=== PATIENT | female | born 1990 | race Caucasian/White ===

== ENCOUNTER 2017-08-31 19:06 | Emergency (ER) | payer OTHER ==
[~2017-08-31] VITALS: Ht 162.6 cm; Wt 103.2 kg
[~2017-08-31 19:06] MED LIST: BUSP5TAB3 PO; DEPA250T PO; DEPA250T2 PO; HYDR-3533 PO; POLY119S PO; SERT50 PO; ZOFR4TAB3 SL
[2017-08-31 19:14] VITALS: BP 138/68; PULSE 71; RESP 18; TEMP 99; O2SAT 100
[2017-08-31] MEDS ORDERED: SODIUM CHLOR 0.9% 1000 ML INJ 1,000 ML IV SCH (19:47)
[2017-08-31 19:54] VITALS: O2SAT 97
--- NOTE | 2017-08-31 19:56 | PD ---
HPI Chief Complaint: Abdominal Pain Time Seen by Provider: 19:22 Travel History International Travel<30 days: No Contact w/Intl Traveler<30days: No Traveled to known affect area: No History of Present Illness HPI The patient is a 27-year-old female who presents to the emergency department pain of 3 days duration. The patient has a history of intermittent pain of the last several months, however, the pain became constant 3 days ago. The patient had an outpatient workup by her primary physician, Dr. Han, who ordered an outpatient ultrasound. The patient states she does not know the results of the ultrasound, however, think she is going to be referred to a gynecologic surgeon, possibly for a left ovarian cyst. The patient does have a history of left ovarian cyst in the past and underwent surgery to remove the cyst. Last menstrual cycle was 2 weeks ago, she is currently on control, denies . She denies any current vaginal bleeding, discharge, dysuria, frequency, or urgency. She denies any associated nausea, vomiting, diarrhea, or change in bowel habits. She does have a history of hernia repair in the left flank, left ovarian cyst removal, and cholecystectomy. She denies any associated fever, chills, or sweats. PFSH Past Medical History Anxiety: Yes Depression: Yes Cancer: No Diabetes: No Diminished Hearing: No Glaucoma: No Hepatitis: No Hiatal Hernia: No Hypertension: No Inguinal Hernia: Yes (left) Immunizations Current: No Thyroid Disease: Yes ?: Not LMP: 1.5 weeks ago : 0 Ovarian Cysts: Yes Past Surgical History Abdominal Surgery: Yes (CHOLECYSTECTOMY) Cardiac Surgery: No Cholecystectomy: Yes Ear Surgery: No Eye Surgery: No Genitourinary Surgery: No Gynecologic Surgery: No Oral Surgery: Yes (WISDOM TEETH) Pacemaker: No Thoracic Surgery: No Other Surgery: Yes Social History Alcohol Use: No (denies) Tobacco Use: No (<1/4 ppd) Substance Use: No Allergies-Medications (Allergen,Severity, Reaction): Coded Allergies: tramadol (Verified Allergy, Severe, MIGRAINE N/V, 08/31/17) Reported Meds & Prescriptions Reported Meds & Active Scripts Active Reported Tri-Sprintec (Norgestimate-Ethinyl Estradiol) 0.18/0.215/0.25 Mg-35 Mcg Tab 1 Tab PO HS Depakote ER (Divalproex Sodium) 500 Mg Mary 1,000 Mg PO DAILY Depakote ER (Divalproex Sodium) 500 Mg Mary 500 Mg PO HS Buspirone (Buspirone HCl) 30 Mg Tab 30 Mg PO BID Review of Systems Except as stated in HPI: all other systems reviewed are Neg General / Constitutional: No: Fever, Chills Cardiovascular: No: Chest Pain or Discomfort Respiratory: No: Shortness of Breath Gastrointestinal: Positive: Abdominal Pain, No: Nausea, Vomiting Genitourinary: Positive: Pelvic Pain, Flank Pain, No: Urgency, Frequency, Dysuria, Hematuria, Discharge, Vaginal Bleeding Skin: No Rash Physical Exam Narrative GENERAL: Awake, alert, pleasant 27-year-old female who appears her stated age and is in no acute respiratory distress. SKIN: Focused skin assessment warm/dry. HEAD: Atraumatic. Normocephalic. EYES: Pupils equal and round. No scleral icterus. No injection or drainage. ENT: No nasal bleeding or discharge. Mucous membranes pink and moist. NECK: Trachea midline. No JVD. CARDIOVASCULAR: Regular rate and rhythm. No murmur appreciated. RESPIRATORY: No accessory muscle use. Clear to auscultation. Breath sounds equal bilaterally. GASTROINTESTINAL: Abdomen soft, obese, tender to palpation left lower quadrant. No guarding rigidity. Back: No CVA tenderness. MUSCULOSKELETAL: No obvious deformities. No clubbing. No cyanosis. No edema. NEUROLOGICAL: Awake and alert. No obvious cranial nerve deficits. Motor grossly within normal limits. Normal speech. PSYCHIATRIC: Appropriate mood and affect; insight and judgment normal. Data Data Last Documented VS Vital Signs Date Time Temp Pulse Resp B/P (MAP) Pulse Ox O2 Delivery O2 Flow Rate FiO2 08/31/17 20:22 69 16 117/69 (85) 96 Room Air 08/31/17 19:14 99.0 Orders Orders Complete Blood Count With Diff (08/31/17 19:47) Comprehensive Metabolic Panel (08/31/17 19:47) Lipase (08/31/17 19:47) Lactic Acid (08/31/17 19:47) Urinalysis - C+S If Indicated (08/31/17 19:47) Iv Access Insert/Monitor (08/31/17 19:47) Ecg Monitoring (08/31/17 19:47) Oximetry (08/31/17 19:47) Morphine Inj (Morphine Inj) (08/31/17 20:00) Ondansetron Inj (Zofran Inj) (08/31/17 20:00) Sodium Chlor 0.9% 1000 Ml Inj (Ns 1000 M (08/31/17 19:47) Sodium Chloride 0.9% Flush (Ns Flush) (08/31/17 20:00) Ketorolac Inj (Toradol Inj) (08/31/17 20:00) Ed Urine Pregnancytest Poc (08/31/17 19:47) Us Pelvis Comp W Dop Transvag (08/31/17 ) Morphine Inj (Morphine Inj) (08/31/17 21:15) Labs Laboratory Tests Test 08/31/17 19:45 08/31/17 19:50 White Blood Count 8.6 TH/MM3 Red Blood Count 4.59 MIL/MM3 Hemoglobin 12.9 GM/DL Hematocrit 39.9 % Mean Corpuscular Volume 86.9 FL Mean Corpuscular Hemoglobin 28.0 PG Mean Corpuscular Hemoglobin Concent 32.3 % Red Cell Distribution Width 12.2 % Platelet Count 273 TH/MM3 Mean Platelet Volume 8.0 FL Neutrophils (%) (Auto) 75.5 % Lymphocytes (%) (Auto) 18.2 % Monocytes (%) (Auto) 4.6 % Eosinophils (%) (Auto) 1.1 % Basophils (%) (Auto) 0.6 % Neutrophils # (Auto) 6.4 TH/MM3 Lymphocytes # (Auto) 1.6 TH/MM3 Monocytes # (Auto) 0.4 TH/MM3 Eosinophils # (Auto) 0.1 TH/MM3 Basophils # (Auto) 0.1 TH/MM3 CBC Comment DIFF FINAL Differential Comment Urine Color YELLOW Urine Turbidity CLEAR Urine pH 6.0 Urine Specific [place] 1.015 Urine Protein NEG mg/dL Urine Glucose (UA) NEG mg/dL Urine Ketones NEG mg/dL Urine Occult Blood NEG Urine Nitrite NEG Urine Bilirubin NEG Urine Urobilinogen 0.2 MG/DL Urine Leukocyte Esterase NEG Urine RBC 0-2 /hpf Urine WBC 3-5 /hpf Urine Squamous Epithelial Cells 6-8 /hpf Urine Bacteria NONE /hpf Microscopic Urinalysis Comment CULT NOT INDICATED Blood Urea Nitrogen 6 MG/DL Creatinine 0.74 MG/DL Random Glucose 104 MG/DL Total Protein 8.5 GM/DL Albumin 3.3 GM/DL Calcium Level 9.3 MG/DL Alkaline Phosphatase 124 U/L Aspartate Amino Transf (AST/SGOT) 20 U/L Alanine Aminotransferase (ALT/SGPT) 39 U/L Total Bilirubin 0.3 MG/DL Sodium Level 139 MEQ/L Potassium Level 3.4 MEQ/L Chloride Level 104 MEQ/L Carbon Dioxide Level 28.0 MEQ/L Anion Gap 7 MEQ/L Estimat Glomerular Filtration Rate 93 ML/MIN Lipase 98 U/L Lactic Acid Level 1.6 mmol/L MDM Medical Decision Making Medical Screen Exam Complete: Yes Emergency Medical Condition: Yes Medical Record Reviewed: Yes Interpretation(s) Laboratory Tests Test 08/31/17 19:45 08/31/17 19:50 White Blood Count 8.6 TH/MM3 Red Blood Count 4.59 MIL/MM3 Hemoglobin 12.9 GM/DL Hematocrit 39.9 % Mean Corpuscular Volume 86.9 FL Mean Corpuscular Hemoglobin 28.0 PG Mean Corpuscular Hemoglobin Concent 32.3 % Red Cell Distribution Width 12.2 % Platelet Count 273 TH/MM3 Mean Platelet Volume 8.0 FL Neutrophils (%) (Auto) 75.5 % Lymphocytes (%) (Auto) 18.2 % Monocytes (%) (Auto) 4.6 % Eosinophils (%) (Auto) 1.1 % Basophils (%) (Auto) 0.6 % Neutrophils # (Auto) 6.4 TH/MM3 Lymphocytes # (Auto) 1.6 TH/MM3 Monocytes # (Auto) 0.4 TH/MM3 Eosinophils # (Auto) 0.1 TH/MM3 Basophils # (Auto) 0.1 TH/MM3 CBC Comment DIFF FINAL Differential Comment Urine Color YELLOW Urine Turbidity CLEAR Urine pH 6.0 Urine Specific [place] 1.015 Urine Protein NEG mg/dL Urine Glucose (UA) NEG mg/dL Urine Ketones NEG mg/dL Urine Occult Blood NEG Urine Nitrite NEG Urine Bilirubin NEG Urine Urobilinogen 0.2 MG/DL Urine Leukocyte Esterase NEG Urine RBC 0-2 /hpf Urine WBC 3-5 /hpf Urine Squamous Epithelial Cells 6-8 /hpf Urine Bacteria NONE /hpf Microscopic Urinalysis Comment CULT NOT INDICATED Blood Urea Nitrogen 6 MG/DL Creatinine 0.74 MG/DL Random Glucose 104 MG/DL Total Protein 8.5 GM/DL Albumin 3.3 GM/DL Calcium Level 9.3 MG/DL Alkaline Phosphatase 124 U/L Aspartate Amino Transf (AST/SGOT) 20 U/L Alanine Aminotransferase (ALT/SGPT) 39 U/L Total Bilirubin 0.3 MG/DL Sodium Level 139 MEQ/L Potassium Level 3.4 MEQ/L Chloride Level 104 MEQ/L Carbon Dioxide Level 28.0 MEQ/L Anion Gap 7 MEQ/L Estimat Glomerular Filtration Rate 93 ML/MIN Lipase 98 U/L Lactic Acid Level 1.6 mmol/L Ultrasound of the pelvis complete with Doppler transvaginal reveals symmetrical blood flow to both ovaries using both transvaginal and transabdominal technique. Large cystic mass left ovary. This has increased in size from the comparison study. Follow-up is suggested. Differential Diagnosis Differential diagnosis includes ovarian cyst, ovarian torsion, ovarian infarction, diverticulitis, PID, cervicitis, UTI, nephrolithiasis, hydronephrosis. Narrative Course IV was established, labs are drawn and sent, the patient was placed on cardiac telemetry monitoring and continuous pulse oximetry monitoring. Bedside UA test was obtained, was negative. UA was sent to lab. The patient was administered morphine, Toradol, Zofran, and IV fluids. Ultrasound of the pelvis with Doppler was ordered to evaluate for possible torsion versus cyst. Diagnosis Primary Impression: Left ovarian cyst Patient Instructions: General Instructions Additional Instructions: Patient needs to follow-up with a rubber covering machine operator in regards to the large cystic mass on the left ovary. Medications as directed. Please provide the patient a copy of her ultrasound results and lab results at discharge. Return if symptoms worsen or progress. Med/Other Pt SpecificInfo: Prescription(s) given Scripts Hydrocodone-Acetaminophen ([place]) 5 Mg-325 Mg Tab 1 TAB PO Q6H Y for PAIN, #12 TAB 0 Refills Prov: Anmol Palomares MD 08/31/17 Ibuprofen (Ibuprofen) 600 Mg Tab 600 MG PO Q6H Y for Pain/Inflammation, #20 TAB 0 Refills Prov: Anmol Palomares MD 08/31/17 Disposition: 01 DISCHARGE HOME Condition: Stable Anmol Palomares MD Aug 31, 2017 19:56
[2017-08-31] MEDS ORDERED: SODIUM CHLORIDE 0.9% FLUSH 10 ML FLUSH IV FLUSH PRN (20:00)
[2017-08-31] MEDS ORDERED: ONDANSETRON HCL 4 MG/2 ML VIAL IVP ONE (20:00)
[2017-08-31] MEDS ORDERED: MORPHINE SULFATE 4 MG/ML INJ IV PUSH ONE ×2 (20:00→21:15)
[2017-08-31] MEDS ORDERED: KETOROLAC TROMETHAMINE 30 MG/ML (IVP) VIAL IVP ONE (20:00)
[2017-08-31 20:09] LABS: AUTOMATED NEUTROPHIL # 6.4 TH/MM3 (1.8-7.7); BASOPHIL # 0.1 TH/MM3 (0-0.2); BASOPHIL % 0.6 % (0.0-2.0); BILIRUBIN, URINE NEG (NEG); BLOOD, URINE NEG (NEG); EOSINOPHIL # 0.1 TH/MM3 (0-0.4); EOSINOPHIL % 1.1 % (0.0-4.0); GLUCOSE,URINE NEG (NEG); HEMATOCRIT 39.9 % (35.0-46.0); HEMOGLOBIN 12.9 GM/DL (11.6-15.3); KETONE, URINE NEG (NEG); LYMPH % 18.2 % (9.0-44.0); LYMPHOCYTE # 1.6 TH/MM3 (1.0-4.8); MEAN CELL VOLUME 86.9 FL (80.0-100.0); MEAN CORPUSCULAR HGB CONC 32.3 % (32.0-36.0); MONO % 4.6 % (0.0-8.0); MONOCYTE # 0.4 TH/MM3 (0-0.9); NEUT % 75.5 % (16.0-70.0); NITRITE,URINE NEG (NEG); PLATELET COUNT 273 TH/MM3 (150-450); RED BLOOD COUNT 4.59 MIL/MM3 (4.00-5.30); RED CELL DISTRIBUTION WIDTH 12.2 % (11.6-17.2); URINE COLOR YELLOW (YELLW/STRAW); URINE LEUKOCYTE ESTERASE NEG (NEG); WHITE BLOOD COUNT 8.6 TH/MM3 (4.0-11.0)
[2017-08-31 20:12] LABS: RBC, URINE 0-2 /hpf (0-3)
[2017-08-31 20:15] LABS: CHLORIDE 104 MEQ/L (98-107); SODIUM (NA) 139 MEQ/L (136-145)
[2017-08-31 20:18] LABS: CALCIUM 9.3 MG/DL (8.5-10.1)
[2017-08-31 20:19] LABS: ALBUMIN 3.3 GM/DL (3.4-5.0); BLOOD UREA NITROGEN 6 MG/DL (7-18); GLUCOSE,RANDOM 104 MG/DL (74-106)
[2017-08-31 20:22] VITALS: BP 117/69; PULSE 69; RESP 16; O2SAT 96
[2017-08-31 20:22] LABS: ALT (GPT) 39 U/L (10-53); AST (GOT) 20 U/L (15-37); CREATININE 0.74 MG/DL (0.50-1.00); GLOMERULAR FILTRATION RATE 93 ML/MIN (>89)
[2017-08-31 20:23] LABS: TOTAL BILIRUBIN ADULT 0.3 MG/DL (0.2-1.0); TOTAL PROTEIN 8.5 GM/DL (6.4-8.2)
[2017-08-31 20:25] LABS: ALKALINE PHOSPHATASE 124 U/L (45-117)
[2017-08-31] MEDS ORDERED: TRI-TAB PO (20:37)
[2017-08-31] MEDS ORDERED: DEPA500T3 PO ×2 (20:37)
[2017-08-31] MEDS ORDERED: BUSP30TA PO (20:37)
--- NOTE | 2017-08-31 21:18 | RADRPT ---
EXAM DATE/TIME: 08/31/2017 20:31 [facility] COMPARISON: C the smaller mural nodules. T ABDOMEN & PELVIS W CONTRAST, June 20, 2015, 21:08. INDICATIONS : Left pelvic pain for several months, worse in the last three days. MEDICAL HISTORY : Left pelvic pain. SURGICAL HISTORY : Left ovarian cyst removed. Hernia repair. Cholecystectomy. Left legh surgery. Left arm surgery. Left knee surgery. Right hand surgery. ENCOUNTER: Initial ACUITY: 2 months PAIN SCORE: 3/10 LOCATION: Bilateral pelvis MEASUREMENTS: TRANSABDOMINAL: UTERUS: 8.0 x 3.8 x 3.1 cm ENDOMETRIAL STRIPE: 6 mm RIGHT OVARY: 2.8 x 1.4 x 2.1 cm LEFT OVARY: 5.9 x 4.6 x 4.3 cm TRANSVAGINAL: UTERUS: 7.7 x 3.9 x 3.3 cm ENDOMETRIAL STRIPE: 2 mm RIGHT OVARY: 2.8 x 1.8 x 1.7 cm LEFT OVARY: 5.9 x 5.0 x 4.8 cm FINDINGS: UTERUS: The myometrium has homogeneous echotexture without mass. RIGHT OVARY: Ovary contains no mass or significant cystic lesion. LEFT OVARY: 4.8 cm cyst midportion. 1.4 center solid nodule lower portion. MISCELLANEOUS: No free fluid. CONCLUSION: Symmetrical blood flow to both ovaries using both transvaginal and transabdominal technique. Large cystic mass left ovary That has increased in size from the comparison study. Followup is suggested. Eliazar Florez MD FACR on August 31, 2017 at 21:13 Board Certified Radiologist. This report was verified electronically.
[2017-08-31 21:21] VITALS: BP 123/71; PULSE 68; RESP 16; O2SAT 97
[2017-08-31] MEDS ORDERED: IBUP-232 PO (21:21)
[2017-08-31] MEDS ORDERED: NORC5TAB PO (21:21)
[2017-08-31 22:28] VITALS: BP 131/74
== END 2017-08-31 22:30 | disposition home or self-care (01) ==
LOC: PHED 19:06
DX: N83.202 Unspecified ovarian cyst, left side (principal); F41.9 Anxiety disorder, unspecified; F32.9 Major depressive disorder, single episode, unspecified; E07.9 Disorder of thyroid, unspecified; F17.200 Nicotine dependence, unspecified, uncomplicated; Z79.899 Other long term (current) drug therapy; Z88.8 Allergy status to other drugs, medicaments and biological substances
CPT/HCPCS: 76830; 76856; 80053; 81001; 83605; 83690; 84703; 85025; 93975; 96361; 96374; 96375; 96376; 99285; J1885; J2270; J2405; J7030